=== PATIENT | male | born 1975 ===

== ENCOUNTER 2017-03-22 07:35 | Day surgery (SDC) | payer MEDICARE, MEDICAID ==
[2014-12-16 12:07] VITALS: BMI 27.4
[2017-03-22] MEDS ORDERED: (Novolin R) Insulin Human Regular 100 units/ml vial SC ONE (08:15)
[2017-03-22] MEDS ORDERED: (Novolin R) Insulin Human Regular 100 units/ml vial ONE ×2 (08:23→10:49)
[2017-03-22] MEDS ORDERED: Iodixanol 320 MG/ML 200 ML BOTTLE IV ONE (12:04)
[2017-03-22] MEDS ORDERED: Iodixanol 320 MG/ML 100 ML BOTTLE IV ONE (12:22)
[2017-03-22] MEDS ORDERED: Midazolam 2 MG/2 ML VIAL ONE ×2 (12:24→12:35)
[2017-03-22] MEDS ORDERED: Sodium Chloride 0.9% 500 ML IV SCH (13:51)
[2017-03-22 14:45] VITALS: RESP 18; O2SAT 100
[2017-03-22 15:18] VITALS: TEMP 97.3
[2017-03-22 17:10] VITALS: BP 107/78; PULSE 85
--- NOTE | 2017-03-23 07:53 | CP.SDSHP ---
Same Day Surgery H & P - History Proposed Procedure: see enclosed office note. no change - Allergies Allergies: Allergies No Known Allergies Allergy (Verified 11/01/14 21:27) Short Stay Discharge - Short Stay Discharge Admitting Diagnosis/Reason for Visit: PAD/LLE Disposition: HOME/ ROUTINE
--- NOTE | 2017-03-29 15:34 | OP ---
PROCEDURE DATE: 03/22/2017 PREOPERATIVE DIAGNOSIS: Peripheral vascular disease with rest pain. POSTOPERATIVE DIAGNOSIS: Peripheral vascular disease with rest pain. PROCEDURES PERFORMED: Retrograde access, right common femoral artery, selective catheter placement in the left distal popliteal artery via contralateral approach, abdominal aortography with bilateral iliofemoral runoff, bilateral lower extremity angiography, placement of distal embolic protection device in the left posterior tibial artery, balloon angioplasty, left popliteal artery, drug-coated stent placement, left popliteal artery. SURGEON: Lala Olvera MD COMPLICATIONS: None. HISTORY: As follows; the patient is a 41-year-old male with past medical history of diabetes mellitus, hypertension, and hyperlipidemia, who has claudication of the left lower extremity. He has developed rest pain. Noninvasive imaging reveals severe distal femoral and popliteal artery disease. The patient is referred for angiography. DESCRIPTION OF PROCEDURE: As follows, informed consent was obtained, the patient was prepped and draped in the usual sterile fashion. Omniflush catheter was advanced into the infrarenal abdominal aorta. Abdominal aortography was performed. The catheter was positioned at the iliac bifurcation. Bilateral iliofemoral runoff was performed. Selective catheter placement along with selective angiography followed by intervention were performed and described separately below. FINDINGS: The inferior renal abdominal aorta is free of aneurysm or dissection. Bilateral renal arteries spread normally and free of significant disease. There is no significant inflow stenosis in the iliofemoral system. In the right leg there is mild to moderate disease with proximal right superficial femoral artery. The right popliteal artery has an proximal stenosis of 80-90%. This is a focused segment. There is 2-vessel runoff to the right foot. In the left leg, the proximal left superficial femoral artery has mild diffuse disease. There is severe 95% stenosis of the proximal to mid left popliteal artery. There is single vessel runoff to the left foot via the perineal artery. The anterior tibial and posterior tibial artery are occluded in the left. INTERVENTION: Selective catheter replacement, which was used via the access from the contralateral right femoral artery. A stiff-angled Glidewire was advanced into the left superficial femoral artery. The Omniflush is removed and exchanged for 6 x 45 cm Cook sheath. A Command ES guidewire was loaded to TrailBlazer catheter and was advanced across the critical stenosis in the proximal popliteal artery. The TrailBlazer catheter was advanced for selective catheter placement in the popliteal artery. The Command ES guidewire was removed and exchanged for a Bare wire, which was advanced to the distal perineal artery. TrailBlazer catheter was removed and an [employer] NAV6 Emboshield embolic protection device was deployed in the distal left popliteal artery. Angioplasty of the left popliteal artery was performed with a 4 x 120 mm balloon. Non flow limiting areas of dissections were noted for improvement of patency the decision was made for provisional stenting. The Cook 6 x 150 mm Ziver PTX drug-eluting stent was positioned and deployed successfully. There was brisk antegrade flow without evidence of distal embolization. The filter was retrieved. The sheath is exchanged for short 6-Nepali sheath. There were no complications and the patient tolerated the procedure well. CONCLUSION: Successful balloon angioplasty and drug-coated stent placement of the left popliteal artery. PLAN: The patient will continue with aggressive medical therapy. He will be followed symptomatically. He may require intervention of the right popliteal artery at a later date. Lala Olvera MD MTDD
== END 2017-03-22 19:05 | disposition home or self-care (01) ==
LOC: C.CATHLAB 07:35
PROVIDERS: ATTEND Internal Medicine Cardiovascular Disease
DX: I70.222 Atherosclerosis of native arteries of extremities with rest pain, left leg (principal)
CPT/HCPCS: 36247; 37226; 75625; 75716; 75774; 82948; 85347; 94770; C1725; C1760; C1766; C1769; C1884; C1887; J1644; J2250; J3010; J7040; Q9966; Q9967